=== PATIENT | female | born 1940 | race Caucasian/White ===

== ENCOUNTER → 2025-02-11 13:48 | Outpatient (CLI) | payer MEDICARE, OTHER, SELFPAY ==
[2025-02-11 15:46] LABS: NT-proBNP (BNP-Adult 18+) 338 pg/mL (<450)
== END ==
PROVIDERS: PCP Nurse Practitioner; Referring Provider Internal Medicine; Visit Provider Internal Medicine
DX: R06.02 Shortness of breath (principal)
CPT/HCPCS: 36415; 83880